=== PATIENT | female | born 1975 | race African-American/Black ===

== ENCOUNTER 2017-04-20 06:20 | Emergency (ER) | payer MEDICAID, OTHER ==
[~2017-04-20 06:20] MED LIST: IBUP800T23 PO; METH750T2 PO
[2017-04-20 06:22] VITALS: BP 139/75; PULSE 78; RESP 15; TEMP 97.9; O2SAT 100
--- NOTE | 2017-04-20 06:39 | PD ---
HPI Chief Complaint: Musculoskeletal Complaint Time Seen by Provider: 06:34 Travel History International Travel<30 days: No Contact w/Intl Traveler<30days: No Traveled to known affect area: No History of Present Illness HPI Patient comes in complaining of right hand pain radiating up to her shoulder ongoing for approximately 2 weeks. Patient denies any known injury. Patient describes pain as aching like in nature and is worse first thing in the morning. Patient states that when she wakes her hand feels cramped up. Patient states working and grabbing things makes the pain worse. Patient has been taking an aspirin for the pain with little to no relief of her symptoms. Patient denies any numbness or tingling. PFSH Past Medical History Blood Disorders: No Cancer: No Diminished Hearing: No Neurologic: Yes Psychiatric: No Seizures: Yes ?: Not LMP: "LAST MONTH" : 7 Para: 3 Miscarriage: 3 : 1 Ectopic : Yes (YES, TUBE REMOVED, UNSURE WHICH) Past Surgical History Genitourinary Surgery: No Pacemaker: No Other Surgery: No Social History Alcohol Use: No Tobacco Use: Yes (OCCASIONAL) Substance Use: No Allergies-Medications (Allergen,Severity, Reaction): Coded Allergies: No Known Allergies (Verified Adverse Reaction, Unknown, 04/20/17) Reported Meds & Prescriptions Reported Meds & Active Scripts Active No Active Prescriptions or Reported Medications Review of Systems Except as stated in HPI: all other systems reviewed are Neg Physical Exam Narrative GENERAL: Well-developed, well nourished, in no acute distress, and non-ill appearing. SKIN: Focused skin assessment warm and dry. HEAD: Atraumatic. Normocephalic. EYES: Pupils equal and round. EOMI. No scleral icterus. No injection or drainage. ENT: No nasal bleeding or discharge. Mucous membranes pink and moist. NECK: Trachea midline. Supple. No nuclear rigidity. RESPIRATORY: No accessory muscle use. No respiratory distress. MUSCULOSKELETAL: No obvious deformities. No clubbing. No cyanosis. No edema. Full range of motion. Wrist: FROM and equal BL with passive flexion, extension, and pronation/supination. Capillary refill less than 2 seconds distal to injury and equal BL. FROM distal to injury and equal BL. Strength distal to injury equal BL. NV intact distal to injury. Flexion and extension of thumb equal BL. Equal strength and movement with abduction/adductions of BL fingers. Surgical Instrument Mechanic strength equal BL. No tenderness to the anatomical snuffbox. Negative Tinel and Phalen's test. NEUROLOGICAL: Awake and alert. No obvious cranial nerve deficits. Motor grossly within normal limits. Normal speech. PSYCHIATRIC: Appropriate mood and affect; insight and judgment normal. Data Data Last Documented VS Vital Signs Date Time Temp Pulse Resp B/P (MAP) Pulse Ox O2 Delivery O2 Flow Rate FiO2 04/20/17 06:22 97.9 78 15 139/75 (96) 100 Room Air Orders Orders Hand, Complete ([id number]) (04/20/17 ) [facility] Medical Decision Making Medical Screen Exam Complete: Yes Emergency Medical Condition: Yes Differential Diagnosis Fracture, strain, arthritis, carpal tunnel syndrome, other Narrative Course Patient was seen and examined. X-ray was ordered. Patient was signed out the oncoming provider, Marcia Jimenez PA-C, at the end of my shift. Please see her documentation for final diagnosis and disposition. Scripts No Active Prescriptions or Reported Meds Kimo Wilson Apr 20, 2017 06:39
--- NOTE | 2017-04-20 07:05 | RADRPT ---
EXAM DATE/TIME: 04/20/2017 06:41 [facility] COMPARISON: No previous studies available for comparison. INDICATIONS : Pain 4th metacarpal radiating into forearm x3 weeks, no known injury. MEDICAL HISTORY : None. SURGICAL HISTORY : None. ENCOUNTER: Initial ACUITY: 3 weeks PAIN SCORE: 8/10 LOCATION: Right hand. FINDINGS: Three view examination of the right hand demonstrates no soft tissue swelling, dislocation, or fractu re. The carpal bones appear intact. The interphalangeal and metacarpophalangeal joints are intact. Bony mineralization is normal. CONCLUSION: Normal examination for a patient of this age. Genaro Sanders MD on April 20, 2017 at 7:02 Board Certified Radiologist. This report was verified electronically.
--- NOTE | 2017-04-20 07:43 | PD ---
Physical Exam Date Seen by Provider: Apr 20, 2017 Narrative 41y female with right arm pain. Based off of H&P and imaging studies, patient likely has neuropathy. Explained to patient that this needs to be followed up by her primary care physician and neurologist. [id number] motrin and tylenol Data Data Last Documented VS Vital Signs Date Time Temp Pulse Resp B/P (MAP) Pulse Ox O2 Delivery O2 Flow Rate FiO2 04/20/17 07:57 04/20/17 06:22 97.9 78 15 100 Room Air Orders Orders Hand, Complete ([id number]) (04/20/17 ) Ed Discharge Order (04/20/17 07:43) MDM Supervised Visit with LUIS: Yes Differential Diagnosis neuropathy vs fracture vs bursitis Diagnosis Primary Impression: Neuropathy Referrals: Neurologist Departure Forms: Tests/Procedures, Work Release Enter return to work date: Apr 22, 2017 Additional Instruction: If your symptoms worsen, return to the ED. Follow up with your primary care physician within 2 days. Consider orthopedic or neurology follow up. May use Tylenol for symptom relief. Scripts No Active Prescriptions or Reported Meds Disposition: 01 DISCHARGE HOME Condition: Stable Marcia Jimenez Apr 20, 2017 07:43
== END 2017-04-20 07:57 | disposition home or self-care (01) ==
LOC: NEPD 06:20
DX: G62.9 Polyneuropathy, unspecified (principal); R56.9 Unspecified convulsions; Z72.0 Tobacco use
CPT/HCPCS: 73130; 99283